=== PATIENT | female | born 1950 | race Caucasian/White ===

== ENCOUNTER 2018-04-26 12:53 | Inpatient (IN) | payer OTHER, MEDICARE ==
[~2018-04-26] VITALS: Ht 160 cm; Wt 107.1 kg
[2018-04-26] MEDS ORDERED: PSEUDOEPHEDRINE HCL 30 MG TAB PO ONE (13:30)
[2018-04-26] MEDS ORDERED: ACETAMINOPHEN/CODEINE 300MG - 30MG TAB PO ONE (13:30)
[2018-04-26 13:35] LABS: BASOPHILS % 0.4 % (0.0-1.0); EOSINOPHILS # (AUTO) 0.2 (0.0-0.4); EOSINOPHILS % 1.6 % (0.0-6.0); HEMATOCRIT 38.7 % (34.2-44.1); HEMOGLOBIN 13.1 g/dL (12.0-16.0); LYMPHOCYTES # (AUTO) 0.8 (1.0-3.2); LYMPHOCYTES % 7.9 % (18.0-39.1); MEAN CORPUSCULAR HEMOGLOBIN 30.2 pg (28-32); MEAN CORPUSCULAR HGB CONC 33.9 g/dL (31-35); MEAN CORPUSCULAR VOLUME 89.2 fL (81-99); MONOCYTES # (AUTO) 0.5 (0.2-0.8); MONOCYTES % 4.5 % (4.4-11.3); NEUTROPHILS # (AUTO) 8.6 (2.1-6.9); PLATELET COUNT 171 x10e3/uL (140-360); RED BLOOD COUNT 4.34 x10e6/uL (3.6-5.1); RED CELL DISTRIBUTION WIDTH 14.3 % (11.7-14.4)
[2018-04-26] MEDS ORDERED: ALBUTEROL/IPRATROPIUM 3 ML NEB NEB ONE (13:45)
[2018-04-26 13:47] LABS: ALBUMIN 3.8 g/dL (3.5-5.0); ALBUMIN/GLOBULIN RATIO 1.1 (0.8-2.0); ANION GAP 18.2 mmol/L (8-16); CALCIUM 10.3 mg/dL (8.4-10.2); CREATININE, SERUM 1.51 mg/dL (0.57-1.11); POTASSIUM 4.2 mmol/L (3.5-5.1)
[2018-04-26 15:05] LABS: BILIRUBIN,URINE NEGATIVE (NEGATIVE); CLARITY,URINE CLEAR (CLEAR); COLOR,URINE YELLOW (YELLOW); KETONES,URINE NEGATIVE (NEGATIVE); LEUKOCYTE ESTERASE ,URINE NEGATIVE (NEGATIVE); NITRITE,URINE NEGATIVE (NEGATIVE); PROTEIN,URINE DIPSTICK TRACE (NEGATIVE); URINE UROBILINOGEN 1 mg/dL (0.2 - 1)
[2018-04-26 15:27] LABS: BACTERIA,URINE MANY /HPF; EPITHELIAL CELLS,URINE MANY /LPF; TRANSITIONAL EPI CELLS,URINE MODERATE
--- NOTE | 2018-04-26 15:27 | Diagnostic Imaging Report ---
A single frontal view of the chest. HISTORY: Cough, shortness of breath, pneumonia COMPARISON: None available. DISCUSSION: Portable technique, limits sensitivity of the exam. Soft tissue attenuation partially limits sensitivity of the exam. Multiple overlying monitoring leads. Tubes/Lines: None Lungs and pleura: Low lung volumes result in bibasilar vascular crowding, accentuation of the pulmonary interstitial markings, central pulmonary vasculature, and the cardiac silhouette. Allowing for these limitations, the findings are as follows: Diffusely increased interstitial and airspace opacities predominantly in a central distribution. No definite pleural effusion or pneumothorax is identified. Heart and mediastinum: The cardiac silhouette is partially obscured. The central pulmonary vasculature appears prominent. Bones: No acute osseous lesion is identified, given this limited exam. IMPRESSION: The pulmonary findings are most suggestive of volume overload resulting in moderate to severe pulmonary edema. However, given the provided history, multifocal pneumonia may be a consideration in the appropriate setting. Discussed with Dr. Rose via phone on April 26, 2018 at 0901. Given these findings and the impaired renal function, it was requested that the pending CT PE protocol be canceled, this request was verbally relayed via phone to Crystal the anesthesiology technologist at [phone]. Signed by: Dr. August Paz D.O., M.M.M. on 04/26/2018 3:23 PM
[2018-04-26] MEDS ORDERED: FUROSEMIDE INJ 10 MG/ML 4 ML VIAL IV ONE (15:30)
[2018-04-26] MEDS ORDERED: ASPIRIN 81 MG CHEW TAB PO ONE (15:30)
[2018-04-26 15:55] LABS: CREATINE KINASE MB 0.6 ng/mL (0-5.0)
[2018-04-26] MEDS ORDERED: ZOLPIDEM TARTRATE 5 MG TAB PO PRN (16:15)
[2018-04-26] MEDS ORDERED: METHYLPREDNISOLONE SOD SUCC 125 MG/2ML VIAL IV ONE (16:30)
[2018-04-26 16:45] LABS: ABG HCO3 26 mmol/L (23-28); ABG PCO2 32 mmHg (41-51); ABG PH 7.52 (7.31-7.41); ABG PO2 129 mmHg (80-105)
[2018-04-26] MEDS ORDERED: FUROSEMIDE INJ 10 MG/ML 4 ML VIAL IV SCH (17:00)
[2018-04-26 17:12] LABS: EOSINOPHILS % (MANUAL) 1 % (0-7); LYMPHOCYTES % (MANUAL) 6 % (19-48); MONOCYTES % (MANUAL) 3 % (3.4-9.0); NEUTROPHILS % (MANUAL) 86 % (40-74); PLATELET MORPHOLOGY COMMENT NORMAL; RBC MORPHOLOGY COMMENT NORMAL
[2018-04-26 17:13] LABS: PLATELET ESTIMATE ADEQUATE
[2018-04-26] MEDS: SODIUM CHLORIDE 0.9% 1000ML 1,000 ML IV SCH (17:30)
[2018-04-26] MEDS ORDERED: FUROSEMIDE INJ 10 MG/ML 4 ML VIAL ONE (17:31)
--- NOTE | 2018-04-26 17:35 | History and Physical ---
PRIMARY CARE PROVIDER: Dr. Stanley Duval CHIEF COMPLAINT: Fever, productive cough and worsening dyspnea. HISTORY OF PRESENT ILLNESS: The patient is a 65-year-old woman. She has a history of nonspecific right interstitial pneumonitis and lower lobe bronchiectasis for several years. She had a bronchoscopy done 2 years ago that showed no evidence of atypical infections or mycobacterial disease. Patient also has superimposed wheezing and chronic persistent asthma. She takes Symbicort twice a day along with nebulizer as needed. Over the past several days, she has noted worsening dyspnea and congestion. She went to the [facility] 2 days ago with fever and cough productive of some phlegm. She received some antibiotics, but did not improve. She came back to the [facility] today and was sent to the ER. After arriving in the ER, she was placed on BiPAP. Portable chest x-ray showed bilateral interstitial alveolar infiltrates. Her brain natriuretic peptide was less than 10 and her creatinine was elevated to 1.2. PAST SURGICAL HISTORY: Status post rotator cuff surgery. PAST MEDICAL HISTORY: Hypertension, diabetes, bronchiectasis, chronic interstitial pneumonitis (NISP), prior echocardiogram that was normal about a year ago. SOCIAL HISTORY: Patient is a nonsmoker. She is not a drinker. There are no birds or animals at home. She does not have any molds or water damage. FAMILY HISTORY: Her mother had hepatitis. She had a sister who from lymphoma. ALLERGIES: THE PATIENT IS ALLERGIC TO CLINDAMYCIN. REVIEW OF SYSTEMS: The patient reports fever at home. She did not have headache or neck pain. She did have some cough productive of whitish-yellowish phlegm. She did not have any chest pain. She had some worsening dyspnea. There was no abdominal pain. She has no nausea or vomiting. She did not complain of any leg pain. PHYSICAL EXAMINATION VITAL SIGNS: The current temperature is 98.9 now. The respiratory rate was initially increased to 28, but has decreased to 19 with BiPAP. Her saturation is 100%. Her pulse was 121 and now it is 96. HEENT: Shows no facial swelling or erythema. The nasal mucosa is normal. Oropharynx is normal. LYMPHATIC: Shows no submandibular, cervical or supraclavicular adenopathy. CARDIOVASCULAR: Reveals a regular rate and rhythm with a normal S1 and S2. There are no murmurs or rubs. LUNGS: Auscultation of the lungs reveals crackles and rhonchi in both lung porter. ABDOMEN: Soft and nontender. There is no rebound or guarding. EXTREMITIES: Shows no leg edema or calf tenderness. There is no cyanosis or clubbing. SKIN: Shows no rashes. NEUROLOGIC: Shows no focal abnormalities. LABORATORY DATA: The white blood cell count is 10.4, hemoglobin is 13.1, and platelet count is 171,000. BUN to creatinine ratio is 32 to 1.5 with a normal baseline renal function. Her glucose is 150. Her calcium is 10.3. Her brain natriuretic peptide is less than 10. IMPRESSION 1. Pneumonia, unspecified with secondary sepsis. 2. Bronchiectasis in the lower lobes. 3. Nonspecific interstitial pneumonitis. 4. Acute kidney injury. 5. Hypercalcemia, probably secondary to dehydration. 6. Hypertension. 7. Chronic gastroesophageal reflux. PLAN 1. The patient will receive intravenous fluids to correct her hypercalcemia and acute kidney injury. 2. Broad-spectrum antibiotics to cover community-acquired pneumonia, as well as gram-negative pneumonia related to bronchiectasis. 3. Panculture including sputum. 4. Urine antigen for legionella and pneumococcus. 5. Solu-Medrol times 1. 6. Continue Symbicort twice a day, as well as bronchodilators through nebulizer as needed. 7. Cardiology evaluation including a repeat echocardiogram. 8. Continue ABG. Continue BiPAP and check ABG. Job#: [id number] LIMA
[2018-04-26] MEDS: AZITHROMYCIN 500MG/NS 250 ML 250 ML IV SCH (17:50)
[2018-04-26] MEDS: PREGABALIN 75 MG CAP PO SCH (17:54)
[2018-04-26] MEDS ORDERED: ALLOPURINOL300 MG PO (18:28)
[2018-04-26] MEDS ORDERED: LEVAQUIN500 MG PO (18:28)
[2018-04-26] MEDS ORDERED: MONTELUKAST SOD10 MG PO (18:28)
[2018-04-26] MEDS ORDERED: LOSARTAN-HCTZ1 EAC2 PO (18:28)
[2018-04-26] MEDS ORDERED: METFORMIN HCL500 MG PO (18:28)
[2018-04-26] MEDS: BUDESONIDE/FORMOTEROL 160/4.5MCG INHALER INH SCH (19:00)
[2018-04-26 19:50] VITALS: BP 115/67
[2018-04-26] MEDS: MONTELUKAST SODIUM 10 MG TAB PO SCH (20:23)
[2018-04-26] MEDS: PIPERACILLIN/TAZO 2.25 GM 50 ML IV SCH (20:23)
[2018-04-26 22:43] VITALS: BP 115/67
[2018-04-26 22:47] LABS: CREATINE KINASE MB 0.8 ng/mL (0-5.0)
[2018-04-27] VITALS (7 sets, daily range): BP systolic 111–137; BP diastolic 62–73
[2018-04-27 05:40] LABS: BASOPHILS % 0.5 % (0.0-1.0); EOSINOPHILS % 0.2 % (0.0-6.0); HEMATOCRIT 35.4 % (34.2-44.1); LYMPHOCYTES # (AUTO) 0.6 (1.0-3.2); LYMPHOCYTES % 9.2 % (18.0-39.1); MEAN CORPUSCULAR HGB CONC 33.9 g/dL (31-35); MEAN CORPUSCULAR VOLUME 88.5 fL (81-99); MONOCYTES # (AUTO) 0.1 (0.2-0.8); MONOCYTES % 0.8 % (4.4-11.3); NEUTROPHILS # (AUTO) 5.6 (2.1-6.9); NEUTROPHILS % 84.3 % (38.7-80.0); PLATELET COUNT 152 x10e3/uL (140-360); RED CELL DISTRIBUTION WIDTH 14.1 % (11.7-14.4)
[2018-04-27 05:56] LABS: ALBUMIN 3.5 g/dL (3.5-5.0); ALBUMIN/GLOBULIN RATIO 1.1 (0.8-2.0); ANION GAP 15.1 mmol/L (8-16); CALCIUM 9.4 mg/dL (8.4-10.2); CREATININE, SERUM 1.51 mg/dL (0.57-1.11); POTASSIUM 4.1 mmol/L (3.5-5.1)
[2018-04-27 06:28] LABS: CREATINE KINASE MB 0.7 ng/mL (0-5.0)
[2018-04-27] MEDS: BUDESONIDE/FORMOTEROL 160/4.5MCG INHALER INH SCH ×2 (07:00→19:00)
[2018-04-27 08:43] LABS: LYMPHOCYTES % (MANUAL) 11 % (19-48); METAMYELOCYTES % (MANUAL) 1 % (0-0); MONOCYTES % (MANUAL) 1 % (3.4-9.0); MYELOCYTES % (MANUAL) 1 % (0-0); NEUTROPHILS % (MANUAL) 83 % (40-74)
[2018-04-27 08:44] LABS: ANISOCYTOSIS SLIGHT
[2018-04-27 08:49] LABS: PLATELET ESTIMATE SLIGHTLY DECREASED; PLATELET MORPHOLOGY COMMENT NORMAL; RBC MORPHOLOGY COMMENT NORMAL
[2018-04-27 08:50] LABS: TOXIC GRANULATION SLIGHT
[2018-04-27] MEDS: ASPIRIN 81 MG CHEW TAB PO SCH (09:57)
[2018-04-27] MEDS: PREGABALIN 75 MG CAP PO SCH ×2 (09:57→16:49)
[2018-04-27] MEDS: PIPERACILLIN/TAZO 2.25 GM 50 ML IV SCH ×2 (11:56→17:49)
--- NOTE | 2018-04-27 13:18 | Consultation ---
DATE OF CONSULTATION: April 27, 2018 CARDIOLOGY CONSULTATION CLINICAL HISTORY: This is a 68-year-old white woman referred by Dr. Donn Cavazos for cardiovascular evaluation in setting of progressive shortness of breath of 1 day duration. 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 She denies any secondhand smoking exposure. She was evaluated a year ago with echocardiogram done outside this hospital, reportedly negative. She is being diagnosed with asthma although she has no childhood asthma in the past. She is using an inhaler. Over the past week, her shortness of breath has worsened. She can hardly walk to the mailbox. Additionally she is short of breath even at rest. She is more short of breath when she is lying down, but she blamed this on drainage of her sinuses. Apparently she has had allergic rhinitis all her life. She does not remember having a tuberculosis test. She has been followed by Dr. Donn Cavazos. Admission chest x-ray was consistent with congestive heart failure. Repeat echocardiogram is pending. Cardiology consultation requested. Workup thus far included CBC which is unrevealing with a slightly increased percentage neutrophils, white count range is still normal. BUN 33, creatinine 1.5. Troponin negative. Blood gas showed pH of 7.52, pCO2 32, pO2 129. She has resting tachycardia at the time of admission of 121, now is down to 62. She was, however, given bronchodilators. PAST MEDICAL HISTORY: Is remarkable for hypertension, diabetes, bronchiectasis, chronic interstitial pneumonitis. PERSONAL / SOCIAL HISTORY: Denies smoking, drinking, animal exposure. 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 FAMILY HISTORY: Mother had hepatitis. Sister apparently had lymphoma. ALLERGIES: CLINDAMYCIN. REVIEW OF SYSTEMS: Noncontributory. PHYSICAL EXAMINATION GENERAL: She is short of breath at rest, frequent cough. CARDIAC: Jugular veins are not distended. S1, S2 were regular. LUNGS: Showed bilateral fine crackles. ABDOMEN: Soft. Bowel sounds are present. EXTREMITIES: Show no cyanosis, clubbing, or edema. LABORATORY DATA: As mentioned. IMPRESSIONS 1. Interstitial pneumonia, apparently chronic. Consider left ventricular dysfunction, although echocardiogram a year ago was said to be negative. 2. History of a lower lobe bronchiectasis. 3. Volume depletion with blood urea nitrogen of 33, creatinine 1.5. 4. Hypercalcemia. 5. Hypertension. 6. Diabetes. 7. Gastroesophageal reflux with no previous history of myocardial infarction. Resting ECG still pending. RECOMMENDATION: Review echocardiogram and resting ECG. Because of azotemia, diuresis may be limiting. Thank you very much. Job#: [id number] TA cc:DONN CAVAZOS MD
--- NOTE | 2018-04-27 14:44 | Progress Note ---
DATE: April 27, 2018 PULMONARY/CRITICAL CARE PROGRESS NOTE The patient notes some improvement since yesterday. She has less dyspnea. She still has some cough. She was seen by cardiology this morning, and an echocardiogram was performed. PHYSICAL EXAMINATION VITALS: The patient is afebrile. The blood pressure is 137/67 and the pulse is 89. O2 saturation is 96%. HEENT: Shows no facial swelling or erythema. CARDIAC: Reveals a regular rate and rhythm with a normal S1 and S2. There are no murmurs or rubs. LUNGS: Auscultation of the lungs reveals a few wheezes bilaterally. There is a prolonged expiratory phase. There are a few crackles at the bases. ABDOMEN: Soft and nontender. There is no rebound or guarding. EXTREMITIES: Shows no leg edema or calf tenderness. IMPRESSION 1. Pneumonia, unspecified with secondary sepsis. 2. Bronchiectasis with acute exacerbation. 3. Nonspecific interstitial pneumonitis. 4. Severe chronic persistent asthma. 5. Acute kidney injury. 6. Hypertension. PLAN 1. The patient will have a repeat CT scan of the chest. 2. Continue Solu-Medrol as well as bronchodilators. 3. Continue antibiotics. 4. Nasal sprays to decrease nasal drainage. 5. Antitussive medication. 6. Complete cardiology evaluation. Job#: [id number] [place]A
[2018-04-27] MEDS: FLUTICASONE PROPIONATE NASAL SPRAY NS SCH (16:49)
[2018-04-27] MEDS: METFORMIN HCL 500 MG TAB PO SCH (16:49)
[2018-04-27] MEDS: AZITHROMYCIN 500MG/NS 250 ML 250 ML IV SCH (16:49)
--- NOTE | 2018-04-27 17:39 | Cardiology Report ---
DATE OF STUDY: April 27, 2018 ECHOCARDIOGRAM M-MODE: Normal chamber wall dimensions. Normal contractility. Normal mitral and aortic valves. No pericardial effusion. SECTOR SCAN: Normal chamber wall dimensions. Normal contractility. Normal mitral, aortic and tricuspid valves. No pericardial effusion. CARDIAC DOPPLER STUDY WITH COLOR: Trace tricuspid regurgitation. Pulmonary artery systolic pressure estimated at 18 mmHg. CONCLUSIONS 1. Left ventricular ejection fraction is approximately 55%. 2. Trace tricuspid regurgitation, probably not clinically significant. Job#: [id number] RI cc:ABHISHEK LEDESMA MD
[2018-04-27] MEDS: SODIUM CHLORIDE 0.9% 1000ML 1,000 ML IV SCH (19:10)
[2018-04-27] MEDS ORDERED: MONTELUKAST SODIUM 10 MG TAB PO SCH (21:00)
[2018-04-27] MEDS: MONTELUKAST SODIUM 10 MG TAB PO SCH (21:05)
[2018-04-27] MEDS: OXYMETAZOLINE HCL 0.05% NAS 1 SPRAY BTL SCH (21:05)
[2018-04-27] MEDS: METHYLPREDNISOLONE SOD SUCC 40 MG/ML VIAL IV SCH (21:05)
[2018-04-28] VITALS (7 sets, daily range): BP systolic 111–146; BP diastolic 63–71
[2018-04-28] MEDS: PIPERACILLIN/TAZO 2.25 GM 50 ML IV SCH ×4 (00:15→18:20)
[2018-04-28] MEDS: SODIUM CHLORIDE 0.9% 1000ML 1,000 ML IV SCH ×3 (04:03→20:31)
[2018-04-28 05:17] LABS: BASOPHILS % 0.1 % (0.0-1.0); HEMATOCRIT 33.5 % (34.2-44.1); HEMOGLOBIN 11.3 g/dL (12.0-16.0); LYMPHOCYTES # (AUTO) 0.6 (1.0-3.2); LYMPHOCYTES % 7.8 % (18.0-39.1); MEAN CORPUSCULAR HEMOGLOBIN 30.2 pg (28-32); MEAN CORPUSCULAR HGB CONC 33.7 g/dL (31-35); MEAN CORPUSCULAR VOLUME 89.6 fL (81-99); MONOCYTES # (AUTO) 0.2 (0.2-0.8); MONOCYTES % 2.4 % (4.4-11.3); NEUTROPHILS # (AUTO) 6.6 (2.1-6.9); NEUTROPHILS % 87.4 % (38.7-80.0); PLATELET COUNT 139 x10e3/uL (140-360); RED BLOOD COUNT 3.74 x10e6/uL (3.6-5.1); RED CELL DISTRIBUTION WIDTH 14.1 % (11.7-14.4)
[2018-04-28 05:43] LABS: ALBUMIN 3.3 g/dL (3.5-5.0); ALBUMIN/GLOBULIN RATIO 1.1 (0.8-2.0); ANION GAP 16.6 mmol/L (8-16); CREATININE, SERUM 1.46 mg/dL (0.57-1.11); POTASSIUM 4.6 mmol/L (3.5-5.1)
[2018-04-28] MEDS: ALBUTEROL/IPRATROPIUM 3 ML NEB NEB PRN (07:25)
[2018-04-28] MEDS: BUDESONIDE/FORMOTEROL 160/4.5MCG INHALER INH SCH ×2 (07:30→20:05)
[2018-04-28] MEDS: FLUTICASONE PROPIONATE NASAL SPRAY NS SCH ×2 (09:34→16:46)
[2018-04-28] MEDS: METFORMIN HCL 500 MG TAB PO SCH ×2 (09:34→16:46)
[2018-04-28] MEDS: METHYLPREDNISOLONE SOD SUCC 40 MG/ML VIAL IV SCH (09:34)
[2018-04-28] MEDS: PREGABALIN 75 MG CAP PO SCH ×2 (09:34→16:47)
[2018-04-28] MEDS: OXYMETAZOLINE HCL 0.05% NAS 1 SPRAY BTL SCH ×2 (09:34→20:30)
[2018-04-28] MEDS: ASPIRIN 81 MG CHEW TAB PO SCH (09:34)
[2018-04-28] MEDS: ALLOPURINOL 300 MG TAB PO SCH (09:35)
[2018-04-28] MEDS: PSEUDOEPHEDRINE HCL 30 MG TAB PO PRN (12:05)
[2018-04-28] MEDS ORDERED: DEXTROSE 50% SYRINGE 50 ML IV PRN (12:30)
[2018-04-28] MEDS: PROMETHAZINE/CODEINE 5 ML UDC PO PRN (12:59)
[2018-04-28] MEDS: AZITHROMYCIN 500MG/NS 250 ML 250 ML IV SCH (16:30)
[2018-04-28] MEDS: INSULIN REGULAR, HUMAN 100 UNIT/1 ML 3ML VIAL SQ SCH ×2 (16:30→20:30)
[2018-04-28] MEDS: MONTELUKAST SODIUM 10 MG TAB PO SCH (20:30)
[2018-04-28] MEDS: METHYLPREDNISOLONE SOD SUCC 125 MG/2ML VIAL IV SCH (20:30)
[2018-04-29] VITALS (7 sets, daily range): BP systolic 119–183; BP diastolic 55–87
[2018-04-29] MEDS: PIPERACILLIN/TAZO 2.25 GM 50 ML IV SCH ×4 (00:23→18:03)
[2018-04-29] MEDS: PROMETHAZINE/CODEINE 5 ML UDC PO PRN (01:49)
[2018-04-29] MEDS: PSEUDOEPHEDRINE HCL 30 MG TAB PO PRN (06:59)
[2018-04-29] MEDS: ALBUTEROL/IPRATROPIUM 3 ML NEB NEB PRN ×2 (07:15→19:45)
[2018-04-29] MEDS: BUDESONIDE/FORMOTEROL 160/4.5MCG INHALER INH SCH ×2 (07:20→19:45)
--- NOTE | 2018-04-29 07:20 | Diagnostic Imaging Report ---
ADDENDUM #1 Addendum: Pulmonary trunk 35 mm suggesting pulmonary hypertension. Signed by: Dr. Sebastian Kingsley MD on 04/29/2018 7:47 AM ORIGINAL REPORT EXAM: CT Chest WITHOUT contrast INDICATION: Pneumonia/cough COMPARISON: Chest x-ray 04/26/2018, with no report available TECHNIQUE: The Chest was scanned utilizing a multidetector helical scanner without the use of IV contrast. Coronal and sagittal reformations were obtained. IV CONTRAST: None COMPLICATIONS: None RADIATION DOSE: Total DLP: 538 mGy*cm Estimated effective dose: (DLP x 0.015 x size factor) mSv CTDIvol has been reviewed. It is below the limits set by the Radiation Protocol Committee (RPC). Appropriate CT dose reduction techniques were utilized. FINDINGS: Lines and Tubes: None. Lower Neck: The visualized thyroid gland is grossly unremarkable with no suspicious or significant nodule identified. Heart and Great Vessels: The aorta and main pulmonary artery measure 31 and 35 mm. respectively. No pericardial effusion. Moderate coronary artery vascular calcifications, most notably mid LAD. Lymph Nodes: 20 x 12 mm right level 10, 10 x 9 mm right upper level 4. The hilar regions are sub-optimally evaluated given lack of IV contrast. Lungs: No pneumothorax or pleural effusion. Trachea and central bronchi are unremarkable. Scattered predominantly peripheral/subpleural groundglass opacities involving the dependent portions of the lower lobes and nondependent portions of the upper lobes with areas of reticulation, architectural distortion, and minimal traction bronchiectasis. Probable granuloma left upper lobe series 3 image 12. Granuloma left lower lobe image 36. Upper abdomen: AP diameter spleen 162 mm. Bones and Soft Tissues: No acute findings. IMPRESSION: 1. Scattered bilateral peripheral/subpleural groundglass opacities, areas of reticulation, and mild traction bronchiectasis. Given lack of comparisons, history, and high-resolution technique etiology uncertain. Chronic lung changes overall favored such as NSIP, chronic hypersensitivity pneumonitis, or chronic drug reaction. Superimposed acute infectious/inflammatory process possible. Clinical and laboratory correlation as well as pulmonary follow-up recommended. Follow-up high-resolution CT recommended upper quadrant on resolution of acute symptoms. 2. Minimal mediastinal adenopathy, statistically reactive. 3. Small hiatal hernia. 4. Moderate coronary artery vascular calcifications LAD. 5. Splenomegaly. Signed by: Dr. Sebastian Kingsley MD on 04/29/2018 7:16 AM
[2018-04-29] MEDS: INSULIN REGULAR, HUMAN 100 UNIT/1 ML 3ML VIAL SQ SCH ×4 (07:30→20:35)
[2018-04-29] MEDS: ASPIRIN 81 MG CHEW TAB PO SCH (09:19)
[2018-04-29] MEDS: PREGABALIN 75 MG CAP PO SCH ×2 (09:19→16:48)
[2018-04-29] MEDS: ALLOPURINOL 300 MG TAB PO SCH (09:19)
[2018-04-29] MEDS: OXYMETAZOLINE HCL 0.05% NAS 1 SPRAY BTL SCH ×2 (09:19→20:37)
[2018-04-29] MEDS: METFORMIN HCL 500 MG TAB PO SCH ×2 (09:19→16:48)
[2018-04-29] MEDS: METHYLPREDNISOLONE SOD SUCC 125 MG/2ML VIAL IV SCH ×2 (09:19→20:37)
[2018-04-29] MEDS: FLUTICASONE PROPIONATE NASAL SPRAY NS SCH ×2 (09:19→16:48)
[2018-04-29] MEDS: SODIUM CHLORIDE 0.9% 1000ML 1,000 ML IV SCH (10:57)
[2018-04-29] MEDS: LOSARTAN POTASSIUM 100 MG TAB PO SCH (13:48)
[2018-04-29] MEDS: AZITHROMYCIN 500MG/NS 250 ML 250 ML IV SCH (16:53)
[2018-04-29] MEDS: MONTELUKAST SODIUM 10 MG TAB PO SCH (20:37)
[2018-04-30] VITALS (7 sets, daily range): BP systolic 148–177; BP diastolic 64–94
[2018-04-30] MEDS: PIPERACILLIN/TAZO 2.25 GM 50 ML IV SCH ×4 (00:07→18:23)
[2018-04-30] MEDS: SODIUM CHLORIDE 0.9% 1000ML 1,000 ML IV SCH (02:56)
[2018-04-30] MEDS: BUDESONIDE/FORMOTEROL 160/4.5MCG INHALER INH SCH ×2 (07:00→20:30)
[2018-04-30] MEDS: INSULIN REGULAR, HUMAN 100 UNIT/1 ML 3ML VIAL SQ SCH ×4 (07:30→21:00)
[2018-04-30] MEDS: OXYMETAZOLINE HCL 0.05% NAS 1 SPRAY BTL SCH (09:40)
[2018-04-30] MEDS: ASPIRIN 81 MG CHEW TAB PO SCH (09:41)
[2018-04-30] MEDS: LOSARTAN POTASSIUM 100 MG TAB PO SCH (09:41)
[2018-04-30] MEDS: METHYLPREDNISOLONE SOD SUCC 125 MG/2ML VIAL IV SCH ×2 (09:41→20:25)
[2018-04-30] MEDS: FLUTICASONE PROPIONATE NASAL SPRAY NS SCH ×2 (09:41→16:30)
[2018-04-30] MEDS: METFORMIN HCL 500 MG TAB PO SCH ×2 (09:41→16:30)
[2018-04-30] MEDS: PREGABALIN 75 MG CAP PO SCH ×2 (09:41→16:30)
[2018-04-30] MEDS: ALLOPURINOL 300 MG TAB PO SCH (09:41)
[2018-04-30] MEDS: AMLODIPINE BESYLATE 5 MG TAB PO SCH (10:01)
[2018-04-30] MEDS ORDERED: EPINEPHRINE HCL INJ 1 MG/ML AMP ONE (14:10)
[2018-04-30] MEDS ORDERED: ACETYLCYSTEINE 200 MG/ML 4ML VIAL ONE (14:10)
[2018-04-30] MEDS ORDERED: LIDOCAINE HCL 4% 50 ML BTL ONE (14:10)
[2018-04-30] MEDS ORDERED: LIDOCAINE HCL 2% 30 ML TUBE ONE (14:11)
[2018-04-30] MEDS ORDERED: OXYMETAZOLINE HCL 0.05% NAS 1 SPRAY BTL ONE (14:11)
[2018-04-30] MEDS ORDERED: BENZOCAINE/TETRACAINE/BUTAMBEN AERO SPRAY 56 GM CAN ONE (14:40)
[2018-04-30] MEDS: AZITHROMYCIN 500MG/NS 250 ML 250 ML IV SCH (16:30)
[2018-04-30] MEDS: PSEUDOEPHEDRINE HCL 30 MG TAB PO PRN (16:40)
[2018-04-30] MEDS ORDERED: FENTANYL CITRATE/PF 100MCG/2 ML INJ ONE (18:14)
[2018-04-30] MEDS ORDERED: MIDAZOLAM HCL 2 MG/2 ML VIAL ONE (18:14)
--- NOTE | 2018-04-30 18:32 | Diagnostic Imaging Report ---
EXAMINATION: CHEST SINGLE (PORTABLE) INDICATION: \S\POST BRONCH, UPRIGHT CHEST XRAY \S\[id number] \S\1811 \S\Y COMPARISON: Chest CT dated 04/27/2018 FINDINGS: AP view TUBES and LINES: None. LUNGS: Limited study due to low lung volumes and body habitus. Central vascular congestion and mild interstitial edema. Bibasilar hazy opacities. PLEURA: No significant pleural effusion or pneumothorax. HEART AND MEDIASTINUM: The cardiomediastinal silhouette appears enlarged on this AP view. BONES AND SOFT TISSUES: No acute osseous lesion. Soft tissues are unremarkable. UPPER ABDOMEN: No free air under the diaphragm. IMPRESSION: Central vascular congestion and mild interstitial edema. Bibasilar hazy opacities, likely atelectasis/scarring. Underlying pneumonia cannot be excluded in the appropriate clinical setting. Signed by: Dr. Missael Salas MD on 04/30/2018 6:28 PM
[2018-04-30] MEDS ORDERED: PROPOFOL IV EMULSION 10 MG/ML 20 ML VIAL ONE (18:42)
[2018-04-30] MEDS ORDERED: SEVOFLURANE INHAL SOLN 250 ML PEN BTL ONE (18:42)
[2018-04-30] MEDS ORDERED: ONDANSETRON HCL INJ 2 MG/ML VIAL ONE (18:42)
[2018-04-30] MEDS ORDERED: EYE LUBRICANT OPTH OINT 3.5GM TUBE OP ONE (18:42)
[2018-04-30] MEDS ORDERED: PHENYLEPHRINE HCL 1% 10 MG/ML VIAL ONE (18:42)
[2018-04-30] MEDS ORDERED: LIDOCAINE HCL 2% LOCAL INJ 5 ML SDV VIAL INJ ONE (18:42)
--- NOTE | 2018-04-30 19:10 | Operative Report ---
DATE OF PROCEDURE: April 30, 2018 PREOPERATIVE DIAGNOSES: Bronchiectasis and nonspecific interstitial pneumonitis. POSTOPERATIVE DIAGNOSES: Bronchiectasis and nonspecific interstitial pneumonitis. ANESTHESIA: Anesthesia service provided MAC anesthesia. CONSENT: Consent was obtained from the patient. PROCEDURE: Bronchoscopy with transbronchial biopsy and bronchoalveolar lavage. DETAILS OF PROCEDURE: Patient was placed in a supine position. A laryngeal mask airway was used. Scope was reduced through the airway. The scope was then passed through the glottis. The tracheal mucosa appeared normal. The thierry appeared normal. Scope was then repositioned into the left tracheobronchial tree. There was mucus in the left mainstem bronchus, which was removed. The patient had a normal lingula in the left upper lobe with no endobronchial lesions. The patient had normal left lower lobe with no endobronchial lesions. The scope was then repositioned into the right tracheobronchial tree. The right upper lobe appeared normal. There were no endobronchial lesions. The right middle lobe was normal. The right lower lobe was normal to the subsegmental level. There was some mucus in the right lower lobe. This was removed. The scope was then positioned into the lateral basilar subsegment of the right lower lobe. The fluoroscopy was used to obtain a transbronchial biopsy x2. A bronchoalveolar lavage was then performed. COMPLICATED: None. ESTIMATION BLOOD LOSS: None. Job#: [id number] SHREYAS
[2018-04-30] MEDS: MONTELUKAST SODIUM 10 MG TAB PO SCH (20:25)
[2018-04-30] MEDS: PROMETHAZINE/CODEINE 5 ML UDC PO PRN (20:25)
[2018-05-01] VITALS (8 sets, daily range): BP systolic 142–173; BP diastolic 67–81
[2018-05-01] MEDS: PIPERACILLIN/TAZO 2.25 GM 50 ML IV SCH ×4 (00:15→18:00)
[2018-05-01] MEDS: SODIUM CHLORIDE 0.9% 1000ML 1,000 ML IV SCH ×2 (00:15→18:00)
[2018-05-01] MEDS: BUDESONIDE/FORMOTEROL 160/4.5MCG INHALER INH SCH ×2 (07:00→20:13)
[2018-05-01] MEDS: INSULIN REGULAR, HUMAN 100 UNIT/1 ML 3ML VIAL SQ SCH ×4 (07:30→21:00)
[2018-05-01] MEDS: FLUTICASONE PROPIONATE NASAL SPRAY NS SCH ×2 (07:53→16:30)
[2018-05-01] MEDS: ASPIRIN 81 MG CHEW TAB PO SCH (07:53)
[2018-05-01] MEDS: PSEUDOEPHEDRINE HCL 30 MG TAB PO PRN (07:53)
[2018-05-01] MEDS: METHYLPREDNISOLONE SOD SUCC 125 MG/2ML VIAL IV SCH (07:53)
[2018-05-01] MEDS: LOSARTAN POTASSIUM 100 MG TAB PO SCH (07:54)
[2018-05-01] MEDS: AMLODIPINE BESYLATE 5 MG TAB PO SCH (07:54)
[2018-05-01] MEDS: ALLOPURINOL 300 MG TAB PO SCH (07:54)
[2018-05-01] MEDS: PREGABALIN 75 MG CAP PO SCH ×2 (07:54→16:30)
[2018-05-01] MEDS: METFORMIN HCL 500 MG TAB PO SCH ×2 (07:54→16:30)
[2018-05-01] MEDS ORDERED: IPRATROPIUM BROMIDE 0.03% NASAL SPRAY 30ML SCH (09:00)
[2018-05-01] MEDS ORDERED: METHYLPREDNISOLONE SOD SUCC 125 MG/2ML VIAL IV SCH (09:00)
[2018-05-01] MEDS: AZITHROMYCIN 500MG/NS 250 ML 250 ML IV SCH (16:29)
[2018-05-01] MEDS: PROMETHAZINE/CODEINE 5 ML UDC PO PRN (16:30)
[2018-05-01] MEDS: ALBUTEROL/IPRATROPIUM 3 ML NEB NEB PRN (20:13)
[2018-05-01] MEDS: MONTELUKAST SODIUM 10 MG TAB PO SCH (20:42)
[2018-05-01] MEDS: METHYLPREDNISOLONE SOD SUCC 40 MG/ML VIAL IV SCH (20:42)
[2018-05-02] VITALS: BP 173/80
[2018-05-02] MEDS: PIPERACILLIN/TAZO 2.25 GM 50 ML IV SCH ×2 (00:02→06:25)
[2018-05-02 04:00] VITALS: BP 173/81
[2018-05-02 05:18] LABS: BASOPHILS % 0.3 % (0.0-1.0); HEMATOCRIT 34.1 % (34.2-44.1); HEMOGLOBIN 11.5 g/dL (12.0-16.0); LYMPHOCYTES # (AUTO) 0.5 (1.0-3.2); LYMPHOCYTES % 6.9 % (18.0-39.1); MEAN CORPUSCULAR HGB CONC 33.7 g/dL (31-35); MONOCYTES # (AUTO) 0.2 (0.2-0.8); MONOCYTES % 2.5 % (4.4-11.3); NEUTROPHILS # (AUTO) 6.7 (2.1-6.9); NEUTROPHILS % 84.7 % (38.7-80.0); PLATELET COUNT 130 x10e3/uL (140-360); RED BLOOD COUNT 3.83 x10e6/uL (3.6-5.1); RED CELL DISTRIBUTION WIDTH 14.1 % (11.7-14.4)
[2018-05-02 05:36] LABS: ALBUMIN 3.3 g/dL (3.5-5.0); ALBUMIN/GLOBULIN RATIO 1.4 (0.8-2.0); ANION GAP 14.2 mmol/L (8-16); CREATININE, SERUM 1.05 mg/dL (0.57-1.11); POTASSIUM 4.2 mmol/L (3.5-5.1)
[2018-05-02] MEDS: SODIUM CHLORIDE 0.9% 1000ML 1,000 ML IV SCH (05:50)
[2018-05-02] MEDS ORDERED: CLONIDINE HCL 0.1 MG TAB PO ONE (06:15)
[2018-05-02] MEDS ORDERED: ALBUTEROL/IPRATROPIUM 3 ML NEB NEB PRN (06:15)
[2018-05-02 07:50] VITALS: BP 168/79
[2018-05-02 08:18] LABS: ANISOCYTOSIS SLIGHT; BAND NEUTROPHILS % (MANUAL) 1 %; LYMPHOCYTES % (MANUAL) 9 % (19-48); MONOCYTES % (MANUAL) 2 % (3.4-9.0); NEUTROPHILS % (MANUAL) 88 % (40-74); PLATELET ESTIMATE SLIGHTLY DECREASED; PLATELET MORPHOLOGY COMMENT NORMAL; POIKILOCYTOSIS SLIGHT; RBC MORPHOLOGY COMMENT NORMAL
[2018-05-02] MEDS: BUDESONIDE/FORMOTEROL 160/4.5MCG INHALER INH SCH (08:45)
[2018-05-02] MEDS: FLUTICASONE PROPIONATE NASAL SPRAY NS SCH (08:47)
[2018-05-02] MEDS: METHYLPREDNISOLONE SOD SUCC 40 MG/ML VIAL IV SCH (08:47)
[2018-05-02] MEDS: ALLOPURINOL 300 MG TAB PO SCH (08:48)
[2018-05-02] MEDS: LOSARTAN POTASSIUM 100 MG TAB PO SCH (08:48)
[2018-05-02] MEDS: METFORMIN HCL 500 MG TAB PO SCH (08:48)
[2018-05-02] MEDS: PREGABALIN 75 MG CAP PO SCH (08:48)
[2018-05-02] MEDS: ASPIRIN 81 MG CHEW TAB PO SCH (08:48)
[2018-05-02 09:00] VITALS: BP 168/79
[2018-05-02] MEDS ORDERED: AMLODIPINE BESYLATE 5 MG TAB PO SCH (09:00)
[2018-05-02] MEDS: INSULIN REGULAR, HUMAN 100 UNIT/1 ML 3ML VIAL SQ SCH ×2 (09:36→12:37)
--- NOTE | 2018-05-02 11:22 | Discharge Summary ---
DISCHARGE DIAGNOSES 1. Bronchiectasis with acute exacerbation. 2. Nonspecific interstitial pneumonitis. 3. Chronic, severe, persistent asthma. 4. Hypertension. 5. Noninsulin dependent diabetes. 6. Pneumonia. CONSULTING PHYSICIAN: Dr. Bryson Angeles of cardiology. PROCEDURES 1. Bronchoscopy with transbronchial biopsy and bronchoalveolar lavage. 2. CT scan of the chest that showed chronic changes consistent with nonspecific interstitial pneumonitis as well as some bronchiectasis and some splenomegaly. DISCHARGE MEDICATIONS 1. Levaquin 500 mg p.o. daily. 2. Losartan/hydrochlorothiazide 100 and 12.5 one p.o. daily. 3. Metformin 500 mg twice daily. 4. Montelukast 10 mg daily. 5. Prednisone taper, starting at 30 mg. 6. Symbicort 160 per 4.5 one puff twice daily. 7. Fluticasone nasal spray. 8. Atrovent nasal spray. 9. Lyrica 75 mg p.o. b.i.d. 10. Promethazine with codeine q.12 p.r.n. HISTORY OF PRESENT ILLNESS: The patient is a 68-year-old woman. She has a history of severe, chronic, persistent asthma as well as some interstitial lung disease consistent with nonspecific interstitial pneumonitis and bronchiectasis. She required a bronchoscopy about 2 years ago that showed no mycobacterial infection, fungal infection or other infectious etiologies. She has received high dose inhaled corticosteroids as well as bronchodilators and nebulizers at home. Despite these therapies, she came in complaining of worsening dyspnea and cough. HOSPITAL COURSE: The patient was admitted. She was started on IV Solu-Medrol along with bronchodilators. She had gradual improvement with this. She also noticed some rhinorrhea and postnasal drainage contributing to her cough. She was treated with nasal sprays. Her CT scan showed changes consistent with nonspecific interstitial pneumonitis and bronchiectasis. She underwent bronchoscopy along with transbronchial biopsy. The preliminary results were showing no infection, but the final results are pending. She was seen in consultation by cardiology. Her echocardiogram showed a preserved ejection fraction with no significant valvular disease. She had some elevated blood pressure, and her blood pressure medication was adjusted. She also had elevated blood sugars requiring some p.r.n. insulin. DISPOSITION: The patient is discharged home. She was feeling much better at the time of discharge and will follow up with Dr. Cavazos in 3 days. If she is still feeling better in 3 days, she will return to work next week. ABHISHEK CAVAZOS MD Job#: [id number]
[2018-05-02 12:48] VITALS: BP 165/77
== END 2018-05-02 12:35 | disposition home or self-care (01) | DRG 871 ==
LOC: ER 13:00 → ERHOLD 15:28 → MED/SURG2 19:51
PROVIDERS: ADMIT Internal Medicine Critical Care Medicine; ATTEND Internal Medicine Critical Care Medicine
DX: A41.89 Other specified sepsis (principal); J18.9 Pneumonia, unspecified organism; J47.1 Bronchiectasis with (acute) exacerbation; N17.9 Acute kidney failure, unspecified
CPT/HCPCS: 31623; 31625; 36415; 36600; 71045; 71250; 76001; 80053; 81001; 82550; 82553; 82784; 82785; 82805; 82948; 83605; 83880; 84484; 85025; 86606; 87040; 87086; 87102; 87116; 87205; 87206; 87335; 87449; 88112; 88305; 88312; 93306; 94640; 94660; 99284; J0171; J0456; J1940; J2001; J2250; J2370; J2405; J2543; J2920; J2930; J7030

== ENCOUNTER → 2018-08-06 | Outpatient (CLI) | payer OTHER ==
[~2018-08-06] MED LIST: ALLOPURINOL300 MG PO; LEVAQUIN500 MG PO; LOSARTAN-HCTZ1 EAC2 PO; METFORMIN HCL500 MG PO; MONTELUKAST SOD10 MG PO
--- NOTE | 2018-08-07 07:24 | Diagnostic Imaging Report ---
EXAMINATION: CT scan of the chest without contrast. TECHNIQUE: Spiral CT images of the chest were performed from the lung apices to the level of the adrenal glands. No intravenous contrast was administered per mild the protocol. Inspiratory and expiratory phase images were obtained. Coronal and sagittal reformatted images were obtained. COMPARISON: CT chest without contrast 04/27/2018 CLINICAL HISTORY:Nonspecific interstitial pneumonia DISCUSSION: ABSENCE OF INTRAVENOUS CONTRAST DECREASES SENSITIVITY FOR DETECTION OF FOCAL LESIONS AND VASCULAR PATHOLOGY. LINES/TUBES: None. LUNGS AND AIRWAYS: As before, trachea, mainstem bronchi, and central lobar and segmental bronchi are patent. Unchanged probable left upper lobe granuloma series 2 image 30, and left lower lobe granuloma series 2 image 76. As before, there are scattered predominantly juxtapleural groundglass opacities within the dependent and nondependent portions of the upper and lower lobes. Associated architectural distortion and mild traction bronchiectasis are without significant interval change compared to the prior when accounting for differences in imaging technique. Probable early honeycombing in the lung bases. Scattered foci of air trapping are noted on expiratory phase images. PLEURA: No pneumothorax or pleural effusions. HEART AND MEDIASTINUM: Visualized thyroid gland is unremarkable. Unchanged mild mediastinal lymphadenopathy. Precarinal lymph node measures 1.3 cm short axis. Coronary artery calcifications. No pericardial effusion. Pulmonary outflow tract is at the upper limits of normal in the current study, measuring 32 mm. No ectasia or aneurysmal dilatation of the thoracic aorta. LYMPH NODES: As above. No axillary lymphadenopathy. ABDOMEN: Visualized portions of the liver, pancreas adrenals and upper poles of the kidneys are unremarkable. Splenomegaly. BONES AND SOFT TISSUES: No osseous destructive lesions. Degenerative disc changes of the thoracic spine. IMPRESSION: Overall stable pulmonary findings most suggestive of usual interstitial pneumonia (UIP) or fibrosing nonspecific interstitial pneumonia (NSIP) which may be neoplastic, related to underlying collagen vascular disease, or certain drug toxicities. Differential diagnosis includes chronic hypersensitivity pneumonitis. Unchanged mild mediastinal lymphadenopathy, likely reactive. Atherosclerotic vascular disease. Splenomegaly. Small sliding hiatal hernia. Signed by: Dr. Spencer Mccauley M.D. on 08/07/2018 7:21 AM
== END ==
LOC: CT 16:54
PROVIDERS: ATTEND Internal Medicine Critical Care Medicine
DX: J98.2 Interstitial emphysema (principal); R59.1 Generalized enlarged lymph nodes; I25.10 Atherosclerotic heart disease of native coronary artery without angina pectoris; R16.1 Splenomegaly, not elsewhere classified; K44.9 Diaphragmatic hernia without obstruction or gangrene
CPT/HCPCS: 71250

== ENCOUNTER → 2019-06-04 | Outpatient (CLI) | payer MEDICARE, OTHER ==
--- NOTE | 2019-06-04 13:21 | Diagnostic Imaging Report ---
EXAM: CT Chest WITHOUT intravenous contrast 06/04/2019 11:24 AM INDICATION: Shortness of breath COMPARISON: Chest CT of 04/27/2018 and 08/06/2018 TECHNIQUE: Chest was scanned utilizing a multidetector helical scanner from the lung apex through the level of the adrenal glands without administration of IV contrast. Coronal and sagittal reformations were obtained. Routine protocol was performed. IV CONTRAST: None RADIATION DOSE: Total DLP: 524.2 mGy*cm. Dose modulation, iterative reconstruction, and/or weight based adjustment of the mA/kV was utilized to reduce the radiation dose to as low as reasonably achievable. COMPLICATIONS: None FINDINGS: LINES/ TUBES: None. LUNGS AND AIRWAYS: The central airways are patent. There are bilateral predominantly peripheral areas of interstitial thickening, bronchiectasis, and groundglass opacities without honeycombing. 6 mm left upper lobe pulmonary nodule (series 2 image 15) appears unchanged from 04/27/2018 and is likely benign. PLEURA: No pleural effusion or pneumothorax. HEART AND MEDIASTINUM: The thyroid gland is normal. No mediastinal, hilar or axillary lymphadenopathy. The heart is not enlarged. No pericardial effusion. Scattered atherosclerotic calcifications involve the coronary arteries and aorta. Small sliding hiatal hernia. UPPER ABDOMEN: Limited images of the upper abdomen demonstrate no focal abnormality of the partially visualized liver, gallbladder, spleen, pancreatic tail, adrenals, and upper kidneys. BONES: No acute osseous injury. No suspicious lytic blastic lesions. SOFT TISSUES: Unremarkable. IMPRESSION: Bilateral predominantly peripheral areas of interstitial thickening, bronchiectasis and groundglass opacities without honeycombing is compatible with interstitial lung disease in an NSIP pattern. Atherosclerotic arterial calcifications, including of the coronary arteries. Signed by: Ken Robles MD on 06/04/2019 1:17 PM
== END ==
LOC: CT 11:08
PROVIDERS: ATTEND Internal Medicine Critical Care Medicine
DX: R91.8 Other nonspecific abnormal finding of lung field (principal)
CPT/HCPCS: 71250

== ENCOUNTER 2022-01-06 19:39 | Emergency (ER) | payer MEDICARE, OTHER ==
[~2022-01-06] VITALS: Ht 160 cm; Wt 107.0 kg
[2022-01-06] MEDS ORDERED: ALBUTEROL SULF 0.083% NEB SOLN 3 ML NEB NEB STA (19:50)
[2022-01-06] MEDS ORDERED: METHYLPREDNISOLONE SOD SUCC 125 MG/2ML VIAL IV ONE (20:00)
[2022-01-06] MEDS ORDERED: IPRATROPIUM BROMIDE 0.02% 2.5 ML NEB NEB ONE (20:00)
[2022-01-06 20:35] LABS: BASOPHILS # (AUTO) 0.1 (0.0-0.1); BASOPHILS % 0.4 % (0.0-1.0); EOSINOPHILS # (AUTO) 0.2 (0.0-0.4); EOSINOPHILS % 1.2 % (0.0-6.0); HEMATOCRIT 41.8 % (34.2-44.1); HEMOGLOBIN 13.5 g/dL (12.0-16.0); LYMPHOCYTES % 14.7 % (18.0-39.1); MEAN CORPUSCULAR HEMOGLOBIN 31.2 pg (28-32); MEAN CORPUSCULAR HGB CONC 32.3 g/dL (31-35); MEAN CORPUSCULAR VOLUME 96.5 fL (81-99); MONOCYTES # (AUTO) 0.8 (0.2-0.8); MONOCYTES % 5.6 % (4.4-11.3); NEUTROPHILS # (AUTO) 10.6 (2.1-6.9); NEUTROPHILS % 77.4 % (38.7-80.0); PLATELET COUNT 173 x10e3/uL (140-360); RED BLOOD COUNT 4.33 x10e6/uL (3.6-5.1); RED CELL DISTRIBUTION WIDTH 14.6 % (11.7-14.4)
[2022-01-06 20:38] LABS: CLARITY,URINE SL CLOUDY (CLEAR); COLOR,URINE YELLOW (YELLOW); KETONES,URINE NEGATIVE (NEGATIVE); LEUKOCYTE ESTERASE ,URINE SMALL (NEGATIVE); NITRITE,URINE NEGATIVE (NEGATIVE); PROTEIN,URINE DIPSTICK 2+ (NEGATIVE); URINE UROBILINOGEN 0.2 mg/dL (0.2 - 1)
[2022-01-06 20:49] LABS: BACTERIA,URINE MODERATE /HPF; EPITHELIAL CELLS,URINE MODERATE /LPF
[2022-01-06 20:50] LABS: ALBUMIN 3.5 g/dL (3.5-5.0); ALBUMIN/GLOBULIN RATIO 0.9 (0.8-2.0); ANION GAP 19.8 mmol/L (8-16); CALCIUM 9.7 mg/dL (8.4-10.2); CREATININE, SERUM 1.28 mg/dL (0.57-1.11); POTASSIUM 3.8 mmol/L (3.5-5.1)
[2022-01-06 20:57] LABS: CREATINE KINASE MB 1.6 ng/mL (0-5.0)
[2022-01-06 22:53] LABS: CREATINE KINASE MB 1.7 ng/mL (0-5.0)
[2022-01-06 23:56] VITALS: BP 128/89
== END 2022-01-06 23:58 | disposition home or self-care (01) ==
LOC: ER 19:45
DX: J44.1 Chronic obstructive pulmonary disease with (acute) exacerbation (principal); J84.10 Pulmonary fibrosis, unspecified; E11.65 Type 2 diabetes mellitus with hyperglycemia; I10 Essential (primary) hypertension; I50.9 Heart failure, unspecified; M10.9 Gout, unspecified; Z20.822 Contact with and (suspected) exposure to COVID-19
CPT/HCPCS: 36415; 71045; 80053; 81001; 82550; 82553; 83605; 84484; 85025; 87040; 87071; 87205; 93005; 94640; 94799; 99284; J2930; U0002

== ENCOUNTER 2022-05-10 18:53 | Inpatient (IN) | payer MEDICARE, OTHER ==
[~2022-05-10] VITALS: Ht 160 cm; Wt 70.3 kg
[2022-05-10] MEDS ORDERED: ALBUTEROL SULF 0.083% NEB SOLN 3 ML NEB NEB STA (19:18)
[2022-05-10] MEDS ORDERED: IPRATROPIUM BROMIDE 0.02% 2.5 ML NEB NEB ONE (19:30)
[2022-05-10] MEDS ORDERED: METHYLPREDNISOLONE SOD SUCC 125 MG/2ML VIAL IV ONE (19:30)
[2022-05-10 19:34] LABS: BASOPHILS # (AUTO) 0.1 (0.0-0.1); BASOPHILS % 0.5 % (0.0-1.0); EOSINOPHILS # (AUTO) 0.2 (0.0-0.4); EOSINOPHILS % 1.5 % (0.0-6.0); HEMATOCRIT 44.9 % (34.2-44.1); HEMOGLOBIN 14.1 g/dL (12.0-16.0); LYMPHOCYTES # (AUTO) 2.1 (1.0-3.2); MEAN CORPUSCULAR HGB CONC 31.4 g/dL (31-35); MEAN CORPUSCULAR VOLUME 95.5 fL (81-99); MONOCYTES # (AUTO) 0.9 (0.2-0.8); MONOCYTES % 5.7 % (4.4-11.3); NEUTROPHILS # (AUTO) 12.7 (2.1-6.9); NEUTROPHILS % 78.7 % (38.7-80.0); PLATELET COUNT 211 x10e3/uL (140-360); RED CELL DISTRIBUTION WIDTH 15.6 % (11.7-14.4)
[2022-05-10 19:47] LABS: ABG HCO3 19 mmol/L (22-26); ABG PCO2 31 mmHg (35-45); ABG PH 7.38 (7.35-7.45); ABG PO2 57 mmHg (80-105); ABG TCO2 20
[2022-05-10 19:50] LABS: ALBUMIN 3.9 g/dL (3.5-5.0); ALBUMIN/GLOBULIN RATIO 1.3 (0.8-2.0); ANION GAP 19.9 mmol/L (8-16); CALCIUM 9.3 mg/dL (8.4-10.2); CREATININE, SERUM 1.54 mg/dL (0.57-1.11); POTASSIUM 3.9 mmol/L (3.5-5.1)
[2022-05-10 19:59] LABS: CREATINE KINASE MB 3.2 ng/mL (0-5.0)
[2022-05-10] MEDS ORDERED: FUROSEMIDE INJ 10 MG/ML 4 ML VIAL IV ONE (20:30)
[2022-05-10 21:24] LABS: CLARITY,URINE CLEAR (CLEAR); COLOR,URINE YELLOW (YELLOW); KETONES,URINE NEGATIVE (NEGATIVE); LEUKOCYTE ESTERASE ,URINE NEGATIVE (NEGATIVE); NITRITE,URINE NEGATIVE (NEGATIVE); PROTEIN,URINE DIPSTICK 2+ (NEGATIVE); URINE UROBILINOGEN 0.2 mg/dL (0.2 - 1)
[2022-05-10 21:36] LABS: BACTERIA,URINE FEW /HPF; RBC,URINE 0-5 /HPF (0-5)
[2022-05-10] MEDS: ALBUTEROL/IPRATROPIUM 3 ML NEB NEB SCH (23:18)
[2022-05-11] MEDS: ALBUTEROL/IPRATROPIUM 3 ML NEB NEB SCH ×6 (00:10→20:40)
[2022-05-11 04:27] LABS: CREATINE KINASE MB 2.9 ng/mL (0-5.0)
[2022-05-11] MEDS ORDERED: FUROSEMIDE INJ 10 MG/ML 4 ML VIAL IV SCH (09:00)
[2022-05-11] MEDS ORDERED: JANUVIA50 MG PO (11:23)
[2022-05-11] MEDS ORDERED: FAMOTIDINE20 MG PO (11:23)
[2022-05-11] MEDS ORDERED: ATORVASTATIN CA20 MG PO (11:23)
[2022-05-11] MEDS ORDERED: LEXAPRO5 MG PO (11:25)
[2022-05-11 12:11] LABS: CREATINE KINASE MB 3.1 ng/mL (0-5.0)
[2022-05-11] MEDS ORDERED: ONDANSETRON HCL INJ 2MG/ML 2ML 2 MG/ML VIAL IV PRN (13:45)
[2022-05-11] MEDS: METHYLPREDNISOLONE SOD SUCC 40 MG/ML VIAL 1ML IV SCH (14:00)
[2022-05-11] MEDS ORDERED: DEXTROSE 50% SYRINGE 50 ML IV PRN (14:00)
[2022-05-11] MEDS: INSULIN REGULAR, HUMAN 100 UNIT/1 ML SQ SCH ×2 (17:23→22:53)
[2022-05-11 19:30] LABS: CREATINE KINASE MB 3.3 ng/mL (0-5.0)
[2022-05-11 20:45] VITALS: BP 110/68
[2022-05-11] MEDS: ATORVASTATIN 20 MG TAB PO SCH (21:51)
[2022-05-11] MEDS: MONTELUKAST SODIUM 10 MG TAB PO SCH (21:51)
[2022-05-11 22:00] VITALS: BP 110/68
[2022-05-11] MEDS: ZOLPIDEM TARTRATE 5 MG TAB PO PRN (23:52)
[2022-05-12] MEDS ORDERED: SYMBICORT 16010.2 GM PO (01:12)
[2022-05-12] MEDS: METHYLPREDNISOLONE SOD SUCC 40 MG/ML VIAL 1ML IV SCH ×2 (01:19→13:02)
[2022-05-12 01:23] VITALS: BP 106/64
[2022-05-12] MEDS: ALBUTEROL/IPRATROPIUM 3 ML NEB NEB SCH ×6 (03:45→23:30)
[2022-05-12 06:08] VITALS: BP 104/74
[2022-05-12 06:34] LABS: ALBUMIN 3.4 g/dL (3.5-5.0); ALBUMIN/GLOBULIN RATIO 1.4 (0.8-2.0); ANION GAP 17.7 mmol/L (8-16); CALCIUM 8.4 mg/dL (8.4-10.2); CREATININE, SERUM 1.21 mg/dL (0.57-1.11); POTASSIUM 3.7 mmol/L (3.5-5.1)
[2022-05-12] MEDS: INSULIN REGULAR, HUMAN 100 UNIT/1 ML SQ SCH ×4 (07:30→20:27)
[2022-05-12 07:31] LABS: HEMATOCRIT 39.1 % (34.2-44.1); HEMOGLOBIN 12.2 g/dL (12.0-16.0); LYMPHOCYTES # (AUTO) 0.4 (1.0-3.2); LYMPHOCYTES % 5.9 % (18.0-39.1); MEAN CORPUSCULAR HGB CONC 31.2 g/dL (31-35); MEAN CORPUSCULAR VOLUME 96.3 fL (81-99); MONOCYTES # (AUTO) 0.1 (0.2-0.8); MONOCYTES % 2.1 % (4.4-11.3); NEUTROPHILS # (AUTO) 5.6 (2.1-6.9); NEUTROPHILS % 91.7 % (38.7-80.0); PLATELET COUNT 135 x10e3/uL (140-360); RED BLOOD COUNT 4.06 x10e6/uL (3.6-5.1); RED CELL DISTRIBUTION WIDTH 14.7 % (11.7-14.4)
[2022-05-12 08:00] VITALS: BP 116/76
[2022-05-12 12:00] VITALS: BP 128/73
[2022-05-12 16:00] VITALS: BP 112/71
[2022-05-12] MEDS ORDERED: SODIUM CHLORIDE 0.9% 250ML 250 ML ONE (18:06)
[2022-05-12] MEDS: GUAIFENESIN 200 MG/10 ML UDC PO PRN (18:12)
[2022-05-12 20:00] VITALS: BP 139/76
[2022-05-12] MEDS: ZOLPIDEM TARTRATE 5 MG TAB PO PRN (20:24)
[2022-05-12] MEDS: ATORVASTATIN 20 MG TAB PO SCH (20:24)
[2022-05-12] MEDS: MONTELUKAST SODIUM 10 MG TAB PO SCH (20:24)
[2022-05-13] VITALS: BP 118/73
[2022-05-13] MEDS: METHYLPREDNISOLONE SOD SUCC 40 MG/ML VIAL 1ML IV SCH ×2 (01:59→14:35)
[2022-05-13] MEDS: ALBUTEROL/IPRATROPIUM 3 ML NEB NEB SCH ×6 (02:50→23:25)
[2022-05-13 05:00] LABS: HEMATOCRIT 38.9 % (34.2-44.1); HEMOGLOBIN 12.1 g/dL (12.0-16.0); LYMPHOCYTES # (AUTO) 0.3 (1.0-3.2); LYMPHOCYTES % 5.1 % (18.0-39.1); MEAN CORPUSCULAR HGB CONC 31.1 g/dL (31-35); MEAN CORPUSCULAR VOLUME 96.3 fL (81-99); MONOCYTES # (AUTO) 0.3 (0.2-0.8); NEUTROPHILS # (AUTO) 5.7 (2.1-6.9); NEUTROPHILS % 90.3 % (38.7-80.0); PLATELET COUNT 129 x10e3/uL (140-360); RED BLOOD COUNT 4.04 x10e6/uL (3.6-5.1); RED CELL DISTRIBUTION WIDTH 14.6 % (11.7-14.4)
[2022-05-13 05:23] LABS: ANION GAP 14.1 mmol/L (8-16); CALCIUM 8.3 mg/dL (8.4-10.2); CREATININE, SERUM 1.11 mg/dL (0.57-1.11); POTASSIUM 4.1 mmol/L (3.5-5.1)
[2022-05-13 08:40] VITALS: BP 118/73
[2022-05-13] MEDS: INSULIN REGULAR, HUMAN 100 UNIT/1 ML SQ SCH ×4 (09:54→22:17)
[2022-05-13 10:07] VITALS: BP 143/83
[2022-05-13 12:00] VITALS: BP 130/76
[2022-05-13] MEDS: GUAIFENESIN 200 MG/10 ML UDC PO PRN (16:11)
[2022-05-13 19:23] VITALS: BP 147/79
[2022-05-13 20:00] VITALS: BP_SYST 106; BP_SYST 185; BP_DIAS 87; BP_DIAS 92
[2022-05-13] MEDS: GUAIFENESIN 200 MG/10 ML UDC PO SCH (22:15)
[2022-05-13] MEDS: ATORVASTATIN 20 MG TAB PO SCH (22:15)
[2022-05-13] MEDS: MONTELUKAST SODIUM 10 MG TAB PO SCH (22:15)
[2022-05-13] MEDS: ZOLPIDEM TARTRATE 5 MG TAB PO PRN (22:23)
[2022-05-13] MEDS: ACETAMINOPHEN 325 MG TAB PO PRN (22:24)
[2022-05-14] VITALS (8 sets, daily range): BP systolic 124–163; BP diastolic 77–85
[2022-05-14] MEDS: GUAIFENESIN 200 MG/10 ML UDC PO SCH ×4 (00:25→17:30)
[2022-05-14] MEDS: METHYLPREDNISOLONE SOD SUCC 40 MG/ML VIAL 1ML IV SCH ×2 (02:03→14:00)
[2022-05-14] MEDS: ALBUTEROL/IPRATROPIUM 3 ML NEB NEB SCH ×6 (03:30→23:00)
[2022-05-14 06:43] LABS: ANION GAP 16.8 mmol/L (8-16); CALCIUM 8.7 mg/dL (8.4-10.2); POTASSIUM 4.8 mmol/L (3.5-5.1)
[2022-05-14] MEDS ORDERED: LIDOCAINE 4% PATCH TP PRN (07:00)
[2022-05-14] MEDS: INSULIN REGULAR, HUMAN 100 UNIT/1 ML SQ SCH ×4 (09:25→21:07)
[2022-05-14] MEDS: AZITHROMYCIN 250 MG TAB PO SCH (09:26)
[2022-05-14] MEDS: LIDOCAINE 4% PATCH TP SCH (10:54)
[2022-05-14] MEDS: ACETAMINOPHEN 325 MG TAB PO PRN ×2 (12:04→21:21)
[2022-05-14] MEDS: MONTELUKAST SODIUM 10 MG TAB PO SCH (21:06)
[2022-05-14] MEDS: ATORVASTATIN 20 MG TAB PO SCH (21:06)
[2022-05-14] MEDS: ZOLPIDEM TARTRATE 5 MG TAB PO PRN (21:20)
[2022-05-15] VITALS (8 sets, daily range): BP systolic 125–151; BP diastolic 69–88
[2022-05-15] MEDS: GUAIFENESIN 200 MG/10 ML UDC PO SCH ×5 (00:59→23:16)
[2022-05-15] MEDS: METHYLPREDNISOLONE SOD SUCC 40 MG/ML VIAL 1ML IV SCH ×2 (01:10→14:08)
[2022-05-15] MEDS: ALBUTEROL/IPRATROPIUM 3 ML NEB NEB SCH ×6 (03:00→23:15)
[2022-05-15] MEDS: AZITHROMYCIN 250 MG TAB PO SCH (09:53)
[2022-05-15] MEDS: LIDOCAINE 4% PATCH TP SCH (09:53)
[2022-05-15] MEDS: ACETAMINOPHEN 325 MG TAB PO PRN ×2 (10:06→21:55)
[2022-05-15] MEDS: INSULIN REGULAR, HUMAN 100 UNIT/1 ML SQ SCH ×4 (10:17→21:41)
[2022-05-15 12:21] LABS: BASOPHILS % 0.1 % (0.0-1.0); HEMATOCRIT 39.1 % (34.2-44.1); HEMOGLOBIN 12.8 g/dL (12.0-16.0); LYMPHOCYTES # (AUTO) 0.5 (1.0-3.2); LYMPHOCYTES % 4.1 % (18.0-39.1); MEAN CORPUSCULAR HEMOGLOBIN 30.3 pg (28-32); MEAN CORPUSCULAR HGB CONC 32.7 g/dL (31-35); MEAN CORPUSCULAR VOLUME 92.7 fL (81-99); MONOCYTES # (AUTO) 0.7 (0.2-0.8); MONOCYTES % 5.9 % (4.4-11.3); NEUTROPHILS # (AUTO) 10.3 (2.1-6.9); NEUTROPHILS % 89.4 % (38.7-80.0); PLATELET COUNT 163 x10e3/uL (140-360); RED BLOOD COUNT 4.22 x10e6/uL (3.6-5.1); RED CELL DISTRIBUTION WIDTH 14.6 % (11.7-14.4)
[2022-05-15 12:40] LABS: ALBUMIN 3.5 g/dL (3.5-5.0); ALBUMIN/GLOBULIN RATIO 1.7 (0.8-2.0); ANION GAP 14.4 mmol/L (8-16); CALCIUM 8.9 mg/dL (8.4-10.2); CREATININE, SERUM 0.95 mg/dL (0.57-1.11); POTASSIUM 4.4 mmol/L (3.5-5.1)
[2022-05-15 12:57] LABS: LYMPHOCYTES % (MANUAL) 10 % (19-48); MONOCYTES % (MANUAL) 7 % (3.4-9.0); NEUTROPHILS % (MANUAL) 83 % (40-74); PLATELET ESTIMATE ADEQUATE; RBC MORPHOLOGY COMMENT NORMAL
[2022-05-15 12:58] LABS: PLATELET MORPHOLOGY COMMENT NORMAL
[2022-05-15] MEDS: ATORVASTATIN 20 MG TAB PO SCH (21:40)
[2022-05-15] MEDS: MONTELUKAST SODIUM 10 MG TAB PO SCH (21:40)
[2022-05-15] MEDS: ZOLPIDEM TARTRATE 5 MG TAB PO PRN (21:55)
[2022-05-16] VITALS (7 sets, daily range): BP systolic 132–159; BP diastolic 81–93
[2022-05-16] MEDS: METHYLPREDNISOLONE SOD SUCC 40 MG/ML VIAL 1ML IV SCH ×2 (01:07→15:31)
[2022-05-16] MEDS: ALBUTEROL/IPRATROPIUM 3 ML NEB NEB SCH ×6 (02:42→23:45)
[2022-05-16] MEDS: GUAIFENESIN 200 MG/10 ML UDC PO SCH ×3 (05:48→17:29)
[2022-05-16 06:16] LABS: BASOPHILS % 0.1 % (0.0-1.0); HEMATOCRIT 39.3 % (34.2-44.1); HEMOGLOBIN 12.3 g/dL (12.0-16.0); LYMPHOCYTES # (AUTO) 0.4 (1.0-3.2); LYMPHOCYTES % 5.3 % (18.0-39.1); MEAN CORPUSCULAR HEMOGLOBIN 29.6 pg (28-32); MEAN CORPUSCULAR HGB CONC 31.3 g/dL (31-35); MEAN CORPUSCULAR VOLUME 94.5 fL (81-99); MONOCYTES # (AUTO) 0.2 (0.2-0.8); NEUTROPHILS # (AUTO) 6.7 (2.1-6.9); NEUTROPHILS % 90.5 % (38.7-80.0); PLATELET COUNT 143 x10e3/uL (140-360); RED BLOOD COUNT 4.16 x10e6/uL (3.6-5.1); RED CELL DISTRIBUTION WIDTH 13.9 % (11.7-14.4)
[2022-05-16 06:55] LABS: ANION GAP 13.4 mmol/L (8-16); CALCIUM 9.1 mg/dL (8.4-10.2); CREATININE, SERUM 0.82 mg/dL (0.57-1.11); POTASSIUM 4.4 mmol/L (3.5-5.1)
[2022-05-16] MEDS: INSULIN REGULAR, HUMAN 100 UNIT/1 ML SQ SCH ×4 (07:30→21:00)
[2022-05-16] MEDS: AZITHROMYCIN 250 MG TAB PO SCH (09:42)
[2022-05-16] MEDS: LIDOCAINE 4% PATCH TP SCH (12:25)
[2022-05-16] MEDS ORDERED: ONDANSETRON HCL 4 MG ORAL DISINTEGRATING TAB PO PRN (13:30)
[2022-05-16] MEDS: MONTELUKAST SODIUM 10 MG TAB PO SCH (21:21)
[2022-05-16] MEDS: ZOLPIDEM TARTRATE 5 MG TAB PO PRN (21:21)
[2022-05-16] MEDS: ATORVASTATIN 20 MG TAB PO SCH (21:21)
[2022-05-17] VITALS (7 sets, daily range): BP systolic 115–151; BP diastolic 63–86
[2022-05-17] MEDS: GUAIFENESIN 200 MG/10 ML UDC PO SCH ×4 (00:38→19:04)
[2022-05-17] MEDS: METHYLPREDNISOLONE SOD SUCC 40 MG/ML VIAL 1ML IV SCH ×2 (02:02→14:00)
[2022-05-17] MEDS: ALBUTEROL/IPRATROPIUM 3 ML NEB NEB SCH ×6 (03:40→23:45)
[2022-05-17 06:38] LABS: HEMATOCRIT 39.9 % (34.2-44.1); HEMOGLOBIN 12.6 g/dL (12.0-16.0); LYMPHOCYTES # (AUTO) 0.5 (1.0-3.2); LYMPHOCYTES % 4.2 % (18.0-39.1); MEAN CORPUSCULAR HGB CONC 31.6 g/dL (31-35); MONOCYTES # (AUTO) 0.3 (0.2-0.8); MONOCYTES % 2.5 % (4.4-11.3); NEUTROPHILS # (AUTO) 9.8 (2.1-6.9); NEUTROPHILS % 92.7 % (38.7-80.0); PLATELET COUNT 162 x10e3/uL (140-360); RED CELL DISTRIBUTION WIDTH 13.6 % (11.7-14.4)
[2022-05-17 07:04] LABS: ANION GAP 11.8 mmol/L (8-16); CALCIUM 8.9 mg/dL (8.4-10.2); CREATININE, SERUM 0.97 mg/dL (0.57-1.11); POTASSIUM 4.8 mmol/L (3.5-5.1)
[2022-05-17] MEDS: INSULIN REGULAR, HUMAN 100 UNIT/1 ML SQ SCH ×4 (07:30→21:00)
[2022-05-17] MEDS: FUROSEMIDE 20 MG TAB PO SCH (10:19)
[2022-05-17] MEDS: AZITHROMYCIN 250 MG TAB PO SCH (10:20)
[2022-05-17] MEDS: LIDOCAINE 4% PATCH TP SCH (11:00)
[2022-05-17] MEDS: ATORVASTATIN 20 MG TAB PO SCH (22:42)
[2022-05-17] MEDS: MONTELUKAST SODIUM 10 MG TAB PO SCH (22:42)
[2022-05-18 00:05] VITALS: BP 113/68
[2022-05-18] MEDS: GUAIFENESIN 200 MG/10 ML UDC PO SCH ×3 (00:48→12:00)
[2022-05-18] MEDS: METHYLPREDNISOLONE SOD SUCC 40 MG/ML VIAL 1ML IV SCH ×2 (02:32→14:00)
[2022-05-18] MEDS: ALBUTEROL/IPRATROPIUM 3 ML NEB NEB SCH ×4 (02:55→14:02)
[2022-05-18 04:46] VITALS: BP 125/82
[2022-05-18 05:53] LABS: BASOPHILS % 0.1 % (0.0-1.0); HEMATOCRIT 40.2 % (34.2-44.1); HEMOGLOBIN 12.5 g/dL (12.0-16.0); LYMPHOCYTES # (AUTO) 0.4 (1.0-3.2); LYMPHOCYTES % 4.4 % (18.0-39.1); MEAN CORPUSCULAR HEMOGLOBIN 29.2 pg (28-32); MEAN CORPUSCULAR HGB CONC 31.1 g/dL (31-35); MEAN CORPUSCULAR VOLUME 93.9 fL (81-99); MONOCYTES # (AUTO) 0.3 (0.2-0.8); MONOCYTES % 2.9 % (4.4-11.3); NEUTROPHILS # (AUTO) 8.2 (2.1-6.9); PLATELET COUNT 158 x10e3/uL (140-360); RED BLOOD COUNT 4.28 x10e6/uL (3.6-5.1); RED CELL DISTRIBUTION WIDTH 13.6 % (11.7-14.4)
[2022-05-18 06:23] LABS: ANION GAP 16.9 mmol/L (8-16); CALCIUM 9.7 mg/dL (8.4-10.2); CREATININE, SERUM 0.99 mg/dL (0.57-1.11); POTASSIUM 4.9 mmol/L (3.5-5.1)
[2022-05-18] MEDS: INSULIN REGULAR, HUMAN 100 UNIT/1 ML SQ SCH ×2 (07:30→11:30)
[2022-05-18] MEDS: AZITHROMYCIN 250 MG TAB PO SCH (08:22)
[2022-05-18] MEDS: FUROSEMIDE 20 MG TAB PO SCH (08:22)
[2022-05-18 08:56] VITALS: BP 125/82
[2022-05-18 09:05] VITALS: BP 134/68
[2022-05-18] MEDS: LIDOCAINE 4% PATCH TP SCH (11:00)
[2022-05-18] MEDS ORDERED: AZITHROMYCIN250 MG PO (12:30)
[2022-05-18] MEDS ORDERED: FUROSEMIDE20 MG PO (12:30)
[2022-05-18] MEDS ORDERED: Lidocaine Patch TP (12:30)
[2022-05-18] MEDS ORDERED: GUAIFENESI100 MG/5 M PO (12:30)
[2022-05-18] MEDS ORDERED: PREDNISONE20 MG PO (12:30)
[2022-05-18 13:35] VITALS: BP 148/82
== END 2022-05-18 15:06 | disposition home health service (06) | DRG 871 ==
LOC: ER 19:12 → ERHOLD 21:41 → OBSVTOIN 21:41 → MED/SURG2 05-11 20:20 → OBSVTOIN 05-12 15:26 → INTOOBSV 05-12 15:26
PROVIDERS: ADMIT Internal Medicine; ATTEND Internal Medicine
DX: A41.9 Sepsis, unspecified organism (principal); I50.23 Acute on chronic systolic (congestive) heart failure; J96.21 Acute and chronic respiratory failure with hypoxia; J47.1 Bronchiectasis with (acute) exacerbation; I13.0 Hypertensive heart and chronic kidney disease with heart failure and stage 1 through stage 4 chronic kidney disease, or unspecified chronic kidney disease; N17.9 Acute kidney failure, unspecified; E87.2 Acidosis; J84.114 Acute interstitial pneumonitis; Z99.81 Dependence on supplemental oxygen; I50.9 Heart failure, unspecified; E11.22 Type 2 diabetes mellitus with diabetic chronic kidney disease; N18.30 Chronic kidney disease, stage 3 unspecified; Z88.1 Allergy status to other antibiotic agents; J84.10 Pulmonary fibrosis, unspecified; S30.1XXA Contusion of abdominal wall, initial encounter
CPT/HCPCS: 36415; 36600; 71045; 74176; 80048; 80053; 81001; 82550; 82553; 82805; 82948; 83605; 83880; 84484; 85025; 87040; 93005; 93306; 94640; 94799; 99251; 99284; G0378; J0456; J1817; J1940; J2920; J2930; J7050

== ENCOUNTER 2022-07-18 11:03 | Inpatient (IN) | payer MEDICARE, OTHER ==
[~2022-07-18] VITALS: Ht 160 cm; Wt 72.6 kg
[~2022-07-18 11:03] MED LIST changes: +ATORVASTATIN CA20 MG PO; +AZITHROMYCIN250 MG PO; +FAMOTIDINE20 MG PO; +FUROSEMIDE20 MG PO; +GUAIFENESI100 MG/5 M PO; +JANUVIA50 MG PO; +LEXAPRO5 MG PO; +Lidocaine Patch TP; +PREDNISONE20 MG PO; +SYMBICORT 16010.2 GM PO
[2022-07-18 12:07] LABS: BASOPHILS # (AUTO) 0.1 (0.0-0.1); BASOPHILS % 0.4 % (0.0-1.0); EOSINOPHILS # (AUTO) 0.6 (0.0-0.4); EOSINOPHILS % 4.4 % (0.0-6.0); HEMATOCRIT 43.6 % (34.2-44.1); HEMOGLOBIN 13.5 g/dL (12.0-16.0); LYMPHOCYTES # (AUTO) 0.8 (1.0-3.2); LYMPHOCYTES % 5.5 % (18.0-39.1); MEAN CORPUSCULAR HEMOGLOBIN 30.3 pg (28-32); MONOCYTES # (AUTO) 0.6 (0.2-0.8); MONOCYTES % 4.5 % (4.4-11.3); NEUTROPHILS # (AUTO) 11.8 (2.1-6.9); NEUTROPHILS % 84.1 % (38.7-80.0); PLATELET COUNT 212 x10e3/uL (140-360); RED BLOOD COUNT 4.45 x10e6/uL (3.6-5.1)
[2022-07-18 12:46] LABS: ALBUMIN 3.3 g/dL (3.5-5.0); ALBUMIN/GLOBULIN RATIO 0.9 (0.8-2.0); ANION GAP 15.6 mmol/L (8-16); CREATININE, SERUM 1.13 mg/dL (0.57-1.11); POTASSIUM 3.6 mmol/L (3.5-5.1)
[2022-07-18 14:10] LABS: CLARITY,URINE SL CLOUDY (CLEAR); COLOR,URINE STRAW (YELLOW); KETONES,URINE TRACE (NEGATIVE); LEUKOCYTE ESTERASE ,URINE NEGATIVE (NEGATIVE); NITRITE,URINE POSITIVE (NEGATIVE); PROTEIN,URINE DIPSTICK 2+ (NEGATIVE)
[2022-07-18 14:11] LABS: URINE UROBILINOGEN 0.2 mg/dL (0.2 - 1)
[2022-07-18 14:20] LABS: BACTERIA,URINE MANY /HPF
[2022-07-18] MEDS ORDERED: SODIUM CHLORIDE 0.9% 1000ML 1,000 ML IV ONE (14:45)
[2022-07-18] MEDS ORDERED: SODIUM CHLORIDE 0.9% 1000ML 1,000 ML ONE (14:49)
[2022-07-18] MEDS ORDERED: IOPAMIDOL 370 MG/ML 100 ML INFUS..BTL INJ ONE (14:56)
[2022-07-18] MEDS ORDERED: CEFTRIAXONE 1 GM VIAL IV ONE (15:30)
[2022-07-18] MEDS ORDERED: SODIUM CHLORIDE FLUSH 10 ML SYR INJ PRN (16:00)
[2022-07-18] MEDS ORDERED: ZOLPIDEM TARTRATE 5 MG TAB PO PRN (16:00)
[2022-07-18] MEDS ORDERED: ONDANSETRON HCL INJ 2MG/ML 2ML 2 MG/ML VIAL IV PRN ×2 (16:00)
[2022-07-18] MEDS ORDERED: DEXTROSE 50% SYRINGE 50 ML IV PRN (16:00)
[2022-07-18] MEDS: METHYLPREDNISOLONE SOD SUCC 40 MG/ML VIAL 1ML IV SCH (16:05)
[2022-07-18] MEDS: INSULIN REGULAR, HUMAN 100 UNIT/1 ML SQ SCH ×2 (16:19→21:02)
[2022-07-18 18:00] VITALS: BP 104/76
[2022-07-18 18:26] VITALS: BP 104/76
[2022-07-18 18:36] VITALS: BP 104/76
[2022-07-18] MEDS ORDERED: ALBUTEROL0.63 MG/3 NEB (19:23)
[2022-07-18] MEDS ORDERED: POLYETHYLENE GLYCOL 3350 17 GM PACK PO PRN (19:30)
[2022-07-18] MEDS ORDERED: METOPROLOL TARTRATE INJ 1 MG/ML VIAL IV PRN (19:30)
[2022-07-18 20:00] VITALS: BP 114/74
[2022-07-18] MEDS: BUDESONIDE/FORMOTEROL 160/4.5MCG INHALER INH SCH (20:22)
[2022-07-18] MEDS: ATORVASTATIN 20 MG TAB PO SCH (20:56)
[2022-07-18] MEDS: MONTELUKAST SODIUM 10 MG TAB PO SCH (20:57)
[2022-07-18 21:34] VITALS: BP 114/74
[2022-07-19] VITALS (7 sets, daily range): BP systolic 104–122; BP diastolic 61–82
[2022-07-19] MEDS: ALBUTEROL SULF 0.083% NEB SOLN 3 ML NEB NEB SCH ×4 (01:20→19:10)
[2022-07-19] MEDS: METHYLPREDNISOLONE SOD SUCC 40 MG/ML VIAL 1ML IV SCH ×2 (03:46→17:19)
[2022-07-19 06:11] LABS: ANION GAP 17.8 mmol/L (8-16); CALCIUM 8.6 mg/dL (8.4-10.2); CREATININE, SERUM 1.08 mg/dL (0.57-1.11); POTASSIUM 4.8 mmol/L (3.5-5.1)
[2022-07-19 06:45] LABS: BASOPHILS % 0.2 % (0.0-1.0); HEMATOCRIT 43.2 % (34.2-44.1); LYMPHOCYTES # (AUTO) 0.5 (1.0-3.2); LYMPHOCYTES % 7.6 % (18.0-39.1); MEAN CORPUSCULAR HEMOGLOBIN 29.9 pg (28-32); MEAN CORPUSCULAR HGB CONC 30.1 g/dL (31-35); MEAN CORPUSCULAR VOLUME 99.3 fL (81-99); MONOCYTES # (AUTO) 0.1 (0.2-0.8); MONOCYTES % 1.5 % (4.4-11.3); NEUTROPHILS # (AUTO) 5.4 (2.1-6.9); NEUTROPHILS % 89.2 % (38.7-80.0); PLATELET COUNT 181 x10e3/uL (140-360); RED BLOOD COUNT 4.35 x10e6/uL (3.6-5.1); RED CELL DISTRIBUTION WIDTH 17.1 % (11.7-14.4)
[2022-07-19 06:50] LABS: THYROID STIMULATING HORMONE 0.324 uIU/mL (0.350-4.940)
[2022-07-19 07:10] LABS: CHOL/HDL RATIO 3.1 (3.0-3.6); MAGNESIUM 1.8 MG/DL (1.3-2.1); PHOSPHORUS 4.6 MG/DL (2.3-4.7)
[2022-07-19] MEDS ORDERED: SODIUM CHLORIDE 0.9% 250ML 250 ML ONE ×2 (07:55→08:28)
[2022-07-19] MEDS: BUDESONIDE/FORMOTEROL 160/4.5MCG INHALER INH SCH ×2 (08:00→19:10)
[2022-07-19] MEDS: DOCUSATE SODIUM 100 MG CAP PO SCH ×2 (10:00→17:19)
[2022-07-19] MEDS: FAMOTIDINE 20 MG TAB PO SCH ×2 (10:00→17:19)
[2022-07-19] MEDS: FUROSEMIDE 20 MG TAB PO SCH (10:00)
[2022-07-19] MEDS: ESCITALOPRAM OXALATE 10 MG TAB PO SCH (10:00)
[2022-07-19] MEDS: SITAGLIPTIN 100 MG TAB PO SCH (10:00)
[2022-07-19] MEDS: INSULIN REGULAR, HUMAN 100 UNIT/1 ML SQ SCH ×4 (10:13→21:47)
[2022-07-19] MEDS: ENOXAPARIN 30 MG/0.3 ML SYR SC SCH (17:19)
[2022-07-19] MEDS: GUAIFENESIN/CODEINE 5 ML LIQD PO PRN (18:57)
[2022-07-19] MEDS ORDERED: ALBUTEROL SULF 0.083% NEB SOLN 3 ML NEB NEB SCH (19:30)
[2022-07-19] MEDS: ATORVASTATIN 20 MG TAB PO SCH (21:43)
[2022-07-19] MEDS: MONTELUKAST SODIUM 10 MG TAB PO SCH (21:43)
[2022-07-20] VITALS (7 sets, daily range): BP systolic 109–125; BP diastolic 72–97
[2022-07-20] MEDS: ALBUTEROL SULF 0.083% NEB SOLN 3 ML NEB NEB SCH ×4 (01:00→20:15)
[2022-07-20] MEDS: GUAIFENESIN/CODEINE 5 ML LIQD PO PRN ×2 (01:58→15:11)
[2022-07-20] MEDS: METHYLPREDNISOLONE SOD SUCC 40 MG/ML VIAL 1ML IV SCH ×2 (04:30→15:11)
[2022-07-20 06:23] LABS: BASOPHILS % 0.2 % (0.0-1.0); HEMATOCRIT 39.6 % (34.2-44.1); HEMOGLOBIN 12.5 g/dL (12.0-16.0); LYMPHOCYTES # (AUTO) 0.7 (1.0-3.2); LYMPHOCYTES % 6.5 % (18.0-39.1); MEAN CORPUSCULAR HEMOGLOBIN 30.5 pg (28-32); MEAN CORPUSCULAR HGB CONC 31.6 g/dL (31-35); MEAN CORPUSCULAR VOLUME 96.6 fL (81-99); MONOCYTES # (AUTO) 0.4 (0.2-0.8); MONOCYTES % 3.8 % (4.4-11.3); NEUTROPHILS # (AUTO) 8.8 (2.1-6.9); NEUTROPHILS % 88.6 % (38.7-80.0); PLATELET COUNT 195 x10e3/uL (140-360); RED CELL DISTRIBUTION WIDTH 17.4 % (11.7-14.4)
[2022-07-20 06:38] LABS: ANION GAP 15.4 mmol/L (8-16); CALCIUM 8.6 mg/dL (8.4-10.2); CREATININE, SERUM 1.2 mg/dL (0.57-1.11); POTASSIUM 4.4 mmol/L (3.5-5.1)
[2022-07-20] MEDS: BUDESONIDE/FORMOTEROL 160/4.5MCG INHALER INH SCH ×2 (07:00→20:15)
[2022-07-20] MEDS: INSULIN REGULAR, HUMAN 100 UNIT/1 ML SQ SCH ×4 (07:30→21:44)
[2022-07-20] MEDS: DOCUSATE SODIUM 100 MG CAP PO SCH ×2 (09:52→16:20)
[2022-07-20] MEDS: SITAGLIPTIN 100 MG TAB PO SCH (09:53)
[2022-07-20] MEDS: FAMOTIDINE 20 MG TAB PO SCH ×2 (09:53→15:11)
[2022-07-20] MEDS: FUROSEMIDE 20 MG TAB PO SCH (09:54)
[2022-07-20] MEDS: ESCITALOPRAM OXALATE 10 MG TAB PO SCH (09:54)
[2022-07-20] MEDS ORDERED: ONDANSETRON HCL 4 MG ORAL DISINTEGRATING TAB PO PRN (13:30)
[2022-07-20] MEDS: ENOXAPARIN 30 MG/0.3 ML SYR SC SCH (16:20)
[2022-07-20] MEDS: ATORVASTATIN 20 MG TAB PO SCH (21:35)
[2022-07-20] MEDS: MONTELUKAST SODIUM 10 MG TAB PO SCH (21:35)
[2022-07-21] VITALS (9 sets, daily range): BP systolic 119–139; BP diastolic 76–88
[2022-07-21] MEDS: ALBUTEROL SULF 0.083% NEB SOLN 3 ML NEB NEB SCH ×4 (00:35→20:00)
[2022-07-21] MEDS: METHYLPREDNISOLONE SOD SUCC 40 MG/ML VIAL 1ML IV SCH (04:49)
[2022-07-21 05:52] LABS: BASOPHILS % 0.1 % (0.0-1.0); HEMATOCRIT 40.7 % (34.2-44.1); HEMOGLOBIN 12.1 g/dL (12.0-16.0); LYMPHOCYTES # (AUTO) 0.8 (1.0-3.2); LYMPHOCYTES % 8.8 % (18.0-39.1); MEAN CORPUSCULAR HEMOGLOBIN 29.9 pg (28-32); MEAN CORPUSCULAR HGB CONC 29.7 g/dL (31-35); MEAN CORPUSCULAR VOLUME 100.5 fL (81-99); MONOCYTES # (AUTO) 0.5 (0.2-0.8); MONOCYTES % 5.6 % (4.4-11.3); NEUTROPHILS # (AUTO) 7.2 (2.1-6.9); NEUTROPHILS % 84.7 % (38.7-80.0); PLATELET COUNT 164 x10e3/uL (140-360); RED BLOOD COUNT 4.05 x10e6/uL (3.6-5.1); RED CELL DISTRIBUTION WIDTH 16.5 % (11.7-14.4)
[2022-07-21 06:26] LABS: ANION GAP 13.5 mmol/L (8-16); CALCIUM 8.8 mg/dL (8.4-10.2); CREATININE, SERUM 1.28 mg/dL (0.57-1.11); POTASSIUM 4.5 mmol/L (3.5-5.1)
[2022-07-21] MEDS: BUDESONIDE/FORMOTEROL 160/4.5MCG INHALER INH SCH ×2 (07:07→20:00)
[2022-07-21] MEDS: INSULIN REGULAR, HUMAN 100 UNIT/1 ML SQ SCH ×4 (08:06→21:40)
[2022-07-21] MEDS: AZITHROMYCIN 250 MG TAB PO SCH (08:09)
[2022-07-21] MEDS: FAMOTIDINE 20 MG TAB PO SCH ×2 (08:09→17:26)
[2022-07-21] MEDS: FUROSEMIDE 20 MG TAB PO SCH (08:10)
[2022-07-21] MEDS: ESCITALOPRAM OXALATE 10 MG TAB PO SCH (08:10)
[2022-07-21] MEDS: SITAGLIPTIN 100 MG TAB PO SCH (08:10)
[2022-07-21] MEDS: DOCUSATE SODIUM 100 MG CAP PO SCH ×2 (08:11→17:25)
[2022-07-21] MEDS: ACETAMINOPHEN 325 MG TAB PO PRN ×2 (08:19→17:39)
[2022-07-21] MEDS: GUAIFENESIN/CODEINE 5 ML LIQD PO PRN ×2 (08:19→17:39)
[2022-07-21] MEDS: ENOXAPARIN 30 MG/0.3 ML SYR SC SCH (17:26)
[2022-07-21] MEDS: MONTELUKAST SODIUM 10 MG TAB PO SCH (20:47)
[2022-07-21] MEDS: ATORVASTATIN 20 MG TAB PO SCH (20:48)
[2022-07-22] VITALS: BP 125/89
[2022-07-22] MEDS: ALBUTEROL SULF 0.083% NEB SOLN 3 ML NEB NEB SCH ×3 (02:30→13:00)
[2022-07-22] MEDS ORDERED: METHYLPREDNISOLONE SOD SUCC 40 MG/ML VIAL 1ML IV SCH (06:00)
[2022-07-22] MEDS: BUDESONIDE/FORMOTEROL 160/4.5MCG INHALER INH SCH (07:50)
[2022-07-22] MEDS: INSULIN REGULAR, HUMAN 100 UNIT/1 ML SQ SCH ×2 (08:30→11:30)
[2022-07-22] MEDS: ESCITALOPRAM OXALATE 10 MG TAB PO SCH (08:48)
[2022-07-22] MEDS: FAMOTIDINE 20 MG TAB PO SCH (08:49)
[2022-07-22] MEDS: DOCUSATE SODIUM 100 MG CAP PO SCH (08:49)
[2022-07-22] MEDS: AZITHROMYCIN 250 MG TAB PO SCH (08:49)
[2022-07-22] MEDS: SITAGLIPTIN 100 MG TAB PO SCH (08:49)
[2022-07-22 09:01] VITALS: BP 125/89
[2022-07-22 09:25] VITALS: BP 123/76
[2022-07-22 12:26] VITALS: BP 125/71
[2022-07-22 16:00] VITALS: BP 130/83
== END 2022-07-22 15:58 | disposition home health service (06) | DRG 871 ==
LOC: ER 11:10 → ERHOLD 15:59 → MED/SURG3 17:42
PROVIDERS: ADMIT Internal Medicine; ATTEND Internal Medicine
DX: A41.51 Sepsis due to Escherichia coli [E. coli] (principal); G93.41 Metabolic encephalopathy; J96.21 Acute and chronic respiratory failure with hypoxia; I50.22 Chronic systolic (congestive) heart failure; Z16.12 Extended spectrum beta lactamase (ESBL) resistance; N30.00 Acute cystitis without hematuria; N17.9 Acute kidney failure, unspecified; I11.0 Hypertensive heart disease with heart failure; I27.23 Pulmonary hypertension due to lung diseases and hypoxia; J84.112 Idiopathic pulmonary fibrosis; Z99.81 Dependence on supplemental oxygen; J45.909 Unspecified asthma, uncomplicated; E78.5 Hyperlipidemia, unspecified; R63.4 Abnormal weight loss; E11.65 Type 2 diabetes mellitus with hyperglycemia; Z66 Do not resuscitate; Z88.1 Allergy status to other antibiotic agents; Z80.1 Family history of malignant neoplasm of trachea, bronchus and lung; Z80.7 Family history of other malignant neoplasms of lymphoid, hematopoietic and related tissues; Z68.28 Body mass index [BMI] 28.0-28.9, adult; Z20.822 Contact with and (suspected) exposure to COVID-19; E86.0 Dehydration; E78.2 Mixed hyperlipidemia; E11.69 Type 2 diabetes mellitus with other specified complication; D72.828 Other elevated white blood cell count; T38.0X5A Adverse effect of glucocorticoids and synthetic analogues, initial encounter
CPT/HCPCS: 36415; 70450; 71045; 71260; 80048; 80053; 80061; 81001; 82948; 83036; 83605; 83735; 83880; 84100; 84443; 84484; 85025; 85379; 87040; 87086; 87186; 87400; 93005; 94799; 99284; J0456; J0696; J1650; J1817; J2185; J2920; J7030; J7050; Q9967